=== PATIENT | female | born 1950 | race Caucasian/White ===

== ENCOUNTER 2018-03-04 00:31 | Outpatient (CLI) | payer OTHER, SELFPAY ==
--- NOTE | 2018-03-04 11:34 | DI.MAMMO_ITS ---
SYMPTOM/DIAGNOSIS: SCREENING, Z12.31 MAMMOGRAMS: Mammograms were interpreted according to the usual protocol including computer analysis with CAD system, tomosynthesis and C view imaging. Comparison is made with the prior examinations. No suspicious masses or microcalcifications are seen. There is no definite evidence of malignancy. IMPRESSION: Negative mammogram. Routine screening is recommended. Category 1 , breast density B. MQSA ASSESSMENT OF FINDINGS: Negative. Category 1. Patient will receive a letter notifying them of these results. BI-RADS category B. There are scattered areas of fibroglandular density.
== END 2018-03-04 00:51 ==
PROVIDERS: PCP Family Medicine; Visit Provider Family Medicine
DX: Z12.31 Encounter for screening mammogram for malignant neoplasm of breast (principal)
CPT/HCPCS: 77063; 77067

== ENCOUNTER 2019-02-19 10:58 | Outpatient (REF) | payer OTHER, SELFPAY ==
[2019-02-19 12:39] LABS: Anion Gap 5.7 mmol/L (3-11); BUN 12 mg/dL (7-18); CO2 29.3 mmol/L (21.0-32.0); CREATININE 0.98 mg/dL (0.55-1.02); Calcium 8.8 mg/dL (8.5-10.1); Chloride 108 mmol/L (98-107); Estimated GFR 55.95 (mL/min/1.73m2); Glucose 81 mg/dL (74-106); HCT 40.5 % (36.0-46.0); HGB 13.1 g/dL (12.0-15.5); Mean Corp. HGB Concentration 32.3 g/dL (32.0-36.0); Mean Corpuscular Hemoglobin 31.7 pg (27.0-33.0); Mean Corpuscular Volume 98.1 fL (80-95); Mean Platelet Volume 9.3 fL (8.0-11.0); Platelet Count 300 x1000/uL (130-400); Potassium 4.3 mmol/L (3.5-5.1); RBC 4.13 m/cumm (4.00-5.20); RBC Distribution Width 12.4 % (11.7-14.6); Sodium 143 mmol/L (136-145)
== END 2019-02-19 11:18 ==
LOC: NCHCN 10:58
PROVIDERS: PCP Family Medicine; Visit Provider Specialist/Technologist Athletic Trainer
DX: Z13.1 Encounter for screening for diabetes mellitus (principal); Z13.228 Encounter for screening for other metabolic disorders; R69 Illness, unspecified
CPT/HCPCS: 80048; 85027

== ENCOUNTER 2019-03-24 00:51 | Outpatient (CLI) | payer OTHER, SELFPAY ==
--- NOTE | 2019-03-24 11:16 | DI.MAMMO_ITS ---
EXAM: MG MAMMO SCREENING CLINICAL HISTORY: SCREENING, Z12.31; WELLNESS EXAM, Z00.00 TECHNIQUE: Bilateral full field digital CC and MLO mammographic images were obtained with 3D tomosyn thesis and utilizing computer aided detection (CAD). COMPARISON: Available for comparison. FINDINGS: Masses/Architectural Distortion: None seen. Microcalcifications: No suspicious pleomorphic-type are seen. Skin Thickening/Nipple Retraction: None. IMPRESSION: 1. No significant interval change with no specific features of malignancy noted. 2. Unless there is more urgent need, screening mammography is recommended, as per [employer] guidelines. ACR BI-RAD Category- 1 Negative Breast Density - Category B - Scattered areas of fibroglandular density A negative radiographic report should not delay biopsy if a dominant or clinically suspicious mass is present. Up to ten percent of cancers are not identified on mammography. A negative report may reinforce clinical impression. Adenosis and dense breasts may obscure an underlying neoplasm. False positive reports average 6 to 10%. Patient will receive a letter notifying them of these results.
== END 2019-03-24 01:11 ==
PROVIDERS: PCP Family Medicine; Visit Provider Specialist/Technologist Athletic Trainer
DX: Z12.31 Encounter for screening mammogram for malignant neoplasm of breast (principal)
CPT/HCPCS: 77063; 77067

== ENCOUNTER 2019-05-15 02:21 | Outpatient (CLI) | payer OTHER, SELFPAY ==
--- NOTE | 2019-05-15 | DI.DEXA_ITS ---
EXAM: XR DEXA BONE DENSITY W/WO ANTHONY INDICATION: WELLNESS EXAM Z00.00, OSTEOPENIA M85.80. COMPARISON: 2018 TECHNIQUE: 2D digital imaging was performed. FINDINGS: The lateral view of the spine shows no compression deformities. Evaluation of the left hip shows a total T-score of -1.8 and a Z-score of -0.2. This is consistent w ith osteopenia and an increased fracture risk. This compares with a total T-score of -1.4 from 2018. Evaluation of the lumbar spine shows a total T-score of -2.6 and a Z-score of -0.5. This is consiste nt with osteoporosis and a high fracture risk. This compares with a total T-score of -2.8 from 2018. IMPRESSION: Osteoporosis in the lumbar spine.
== END 2019-05-15 02:41 ==
PROVIDERS: PCP Family Medicine; Visit Provider Specialist/Technologist Athletic Trainer
DX: M85.88 Other specified disorders of bone density and structure, other site (principal); M81.0 Age-related osteoporosis without current pathological fracture
CPT/HCPCS: 77080

== ENCOUNTER 2020-03-29 01:59 | Outpatient (CLI) | payer OTHER, SELFPAY ==
--- NOTE | 2020-03-29 15:08 | DI.MAMMO_ITS ---
EXAM: MG MAMMO SCREENING CLINICAL HISTORY: SCREENING, Z12.31. TECHNIQUE: Bilateral full field digital CC and MLO mammographic images were obtained with 3D tomosyn thesis and utilizing computer aided detection (CAD). COMPARISON: Prior mammograms dating back to 2010, the most recent being March 2019. FINDINGS: There are no spiculated masses nor malignant appearing microcalcification groups. There is no signif icant architectural distortion nor skin thickening-retraction. IMPRESSION: No radiographic evidence of malignancy. BI-RADS Category 1 - Negative Breast Density - Category B - Scattered areas of fibroglandular density Breast density Category C or D implies that the patient has dense breast tissue. Dense breast tissue can make it harder to find cancer on a mammogram. Dense breast tissue is also associated with an incr eased risk of breast cancer. This information about the result of the mammogram report was provided to the patient to raise their awareness. Use this report when you speak with the patient about their risks for breast cancer, which includes their family history. At that time, you may recommend additional screening tests (Ultrasoun d or MRI) as these tests may add significant information. A negative radiographic report should not delay biopsy if a dominant or clinically suspicious mass is present. Up to ten percent of cancers are not identified on mammography. A negative report may reinforce clinical impression. Adenosis and dense breasts may obscure an underlying neoplasm. False positive reports average 6 to 10%. Patient will receive a letter notifying them of these results.
== END 2020-03-29 02:19 ==
PROVIDERS: PCP Family Medicine; Visit Provider Family Medicine
DX: Z12.31 Encounter for screening mammogram for malignant neoplasm of breast (principal)
CPT/HCPCS: 77063; 77067

== ENCOUNTER 2021-02-22 10:03 | Outpatient (REF) | payer MEDICARE, SELFPAY ==
[2021-02-21 16:13] LABS: ALT 17 U/L (14-59); AST 14 U/L (15-37); Alkaline Phosphatase 77 U/L (46-116); BUN 15 mg/dL (7-18); Bilirubin, Total 1.1 mg/dL (0.2-1.0); Calcium 9.1 mg/dL (8.5-10.1); Calculated LDL 158 mg/dL (<100); Chloride 109 mmol/L (98-107); Cholesterol 231 mg/dL (<200); Estimated GFR 54.35 (mL/min/1.73m2); Glucose 82 mg/dL (74-106); HDL Cholesterol 56 mg/dL (40-60); Potassium 4.2 mmol/L (3.5-5.1); Sodium 146 mmol/L (136-145); Triglyceride 85 mg/dL (<150)
== END 2021-02-22 10:04 | disposition home or self-care (01) ==
LOC: NCHCN 10:03
PROVIDERS: PCP Family Medicine; Visit Provider Family Medicine
DX: C44.91 Basal cell carcinoma of skin, unspecified (principal); M81.0 Age-related osteoporosis without current pathological fracture; Z00.00 Encounter for general adult medical examination without abnormal findings
CPT/HCPCS: 80053; 80061

== ENCOUNTER 2021-03-30 00:09 | Outpatient (CLI) | payer MEDICARE, SELFPAY ==
--- NOTE | 2021-03-30 | DI.MAMMO_ITS ---
Exam(s) MAMMO SCREENING EXAM: MAMMO SCREENING CLINICAL HISTORY: SCREENING MAMMO Z12.31. TECHNIQUE: Bilateral full field digital CC and MLO mammographic images were obtained with 3D tomosyn thesis and utilizing computer aided detection (CAD). COMPARISON: Prior mammograms dating back to 2011, the most recent being March 2020. FINDINGS: There are no new spiculated masses nor malignant appearing microcalcification groups. There is no significant architectural distortion nor skin thickening-retraction. IMPRESSION: No radiographic evidence of malignancy. BI-RADS Category 1 - Negative Breast Density - Category B - Scattered areas of fibroglandular density Breast density Category C or D implies that the patient has dense breast tissue. Dense breast tissue can make it harder to find cancer on a mammogram. Dense breast tissue is also associated with an incr eased risk of breast cancer. This information about the result of the mammogram report was provided to the patient to raise their awareness. Use this report when you speak with the patient about their risks for breast cancer, which includes their family history. At that time, you may recommend additional screening tests (Ultrasoun d or MRI) as these tests may add significant information. A negative radiographic report should not delay biopsy if a dominant or clinically suspicious mass is present. Up to ten percent of cancers are not identified on mammography. A negative report may reinforce clinical impression. Adenosis and dense breasts may obscure an underlying neoplasm. False positive reports average 6 to 10%. Patient will receive a letter notifying them of these results.
== END 2021-03-30 00:29 ==
PROVIDERS: PCP Family Medicine; Visit Provider Family Medicine
DX: Z12.31 Encounter for screening mammogram for malignant neoplasm of breast (principal)
CPT/HCPCS: 77063; 77067

== ENCOUNTER 2021-05-20 00:46 | Outpatient (CLI) | payer MEDICARE, SELFPAY ==
--- NOTE | 2021-05-20 | DI.DEXA_ITS ---
Exam(s) XR DEXA BONE DENSITY W/WO ANTHONY EXAM: XR DEXA BONE DENSITY W/WO ANTHONY CLINICAL HISTORY: OSTEOPOROSIS M81.0, WELLNESS EXAM Z00.00 TECHNIQUE: COMPARISON: CR XR DEXA BONE DENSITY W/WO ANTHONY from 05/15/2019 FINDINGS: Lateral Spine Image: Unremarkable. No compression deformities identified. Left hip: Total T-Score: -1.6. This compares to -1.8 on the prior examination. Total Z-Score: 0.1 T- and Z-scores: Findings are consistent with osteopenia. Lumbar Spine: Total T-Score: -2.5. This compares to -2.6 on the prior examination. Total Z-Score: -0.2 T- and Z-scores: Findings of osteoporosis. IMPRESSION: Osteoporosis in the lumbar spine.
== END 2021-05-20 01:06 ==
PROVIDERS: PCP Family Medicine; Visit Provider Family Medicine
DX: M81.0 Age-related osteoporosis without current pathological fracture (principal); Z13.820 Encounter for screening for osteoporosis; M85.88 Other specified disorders of bone density and structure, other site
CPT/HCPCS: 77080

== ENCOUNTER → 2021-08-12 23:47 | Outpatient (CLI) | payer MEDICARE, SELFPAY ==
--- NOTE | 2021-08-12 | DI.CT_ITS ---
Exam(s) CT HEAD WO EXAM: CT HEAD WO CLINICAL HISTORY: TRAUMATIC HEADACHE G44.309, SYNCOPE, HIT HEAD, VOMITING, BRUISING FOREHEAD. TECHNIQUE: Imaging Protocol: Axial computed tomography images with coronal and sagittal reformatted images were created and reviewed COMPARISON: No exams were available for comparison FINDINGS: There are no skull fractures nor fluid in the visualized paranasal sinuses. There is no evidence of intracranial hemorrhage, mass effect, or shift of midline structures. There are no extra-axial fluid collections. The ventricles are not enlarged or shifted and there is no blo od within the ventricular system nor within the basal cisterns. IMPRESSION: No acute intracranial findings on this noninfused CT scan of the brain. RADIATION DOSE DELIVERED: 584.57mGy.cm Total DLP DATA REPOSITORY: All CT scans at this facility are submitted to the National Radiology Data Registry (NRDR) Dose Index Registry (DIR) with the [employer] (ACR). RADIATION OPTIMIZATION: All CT scans at this facility use at least one of these dose optimization te chniques: automated exposure control; mA and/or kV adjustment per patient size (includes targeted exa ms where dose is matched to clinical indication); or iterative reconstruction.
== END ==
PROVIDERS: PCP Family Medicine; Visit Provider Family Medicine
DX: G44.309 Post-traumatic headache, unspecified, not intractable (principal); R55 Syncope and collapse; R11.10 Vomiting, unspecified
CPT/HCPCS: 70450

== ENCOUNTER 2022-03-03 13:07 | Outpatient (REF) | payer MEDICARE, SELFPAY ==
[2022-03-03 15:01] LABS: ALT 18 U/L (14-59); AST 16 U/L (15-37); Alkaline Phosphatase 77 U/L (46-116); Anion Gap 6.7 mmol/L (3-11); BUN 22 mg/dL (7-18); Bilirubin, Total 1.1 mg/dL (0.2-1.0); CO2 30.3 mmol/L (21.0-32.0); Calcium 9.1 mg/dL (8.5-10.1); Calculated LDL 129 mg/dL (<100); Chloride 105 mmol/L (98-107); Cholesterol 204 mg/dL (<200); Estimated GFR 59.12 (mL/min/1.73m2); Glucose 81 mg/dL (74-106); HDL Cholesterol 54 mg/dL (40-60); Potassium 4.1 mmol/L (3.5-5.1); Sodium 142 mmol/L (136-145); Triglyceride 109 mg/dL (<150)
[2022-03-03 15:18] LABS: Vitamin D 25 Total 49.6 ng/mL (30-100)
== END 2022-03-03 13:08 | disposition home or self-care (01) ==
LOC: NCHCN 13:07
PROVIDERS: PCP Family Medicine; Visit Provider Family Medicine
DX: E78.5 Hyperlipidemia, unspecified (principal); Z00.00 Encounter for general adult medical examination without abnormal findings
CPT/HCPCS: 80053; 80061; 82306

== ENCOUNTER 2022-03-31 00:32 | Outpatient (CLI) | payer MEDICARE, SELFPAY ==
--- NOTE | 2022-03-31 | DI.CTLCSR_ITS ---
Exam(s) CT CHEST LUNG CANCER SCREEN EXAM: CT CHEST LUNG CANCER SCREEN CLINICAL HISTORY: SCREENING FOR LUNG CA, FORMER SMOKER, Z87.891 TECHNIQUE: Imaging Protocol: Axial computed tomography images with coronal and sagittal reformatted images were created and reviewed. Low dose screening protocol. COMPARISON: CT CT CHEST SCREENING LUNG CANCER from 10/18/2020 FINDINGS: The exam is somewhat limited by respiratory motion and expiratory changes posteriorly.. Tracheobronchial tree: No bronchiectasis or mucus plugging.. Mediastinum and Maddi: No dominant adenopathy or fluid collection. Pulmonary parenchyma: Mild biapical scarring. No consolidation or dominant measurable mass. No visib le emphysematous changes. Lung Nodules: None. Pleura: No effusion. No pneumothorax. Heart: The heart is not dilated. No coronary artery calcifications are seen. Trace pericardial effusi on. Smaller than prior. Aorta: Thoracic aorta non-dilated.Mild atherosclerotic changes. Upper abdomen: Unremarkable. Bones: Unremarkable for age. Soft Tissues: Unremarkable. IMPRESSION: No suspicious pulmonary nodules. Exam is limited by respiratory motion and expiratory changes. Lung RADS Cat 2 - Benign Appearance / Behavior: Nodules with a very low likelihood of becoming a clin ically active cancer due to size or lack of growth Lung-RADS 1.0 CATEGORIES: Category 0 - Prior chest CT exam(s) being located for comparison. Category 1 - Annual screening in 12 months. No nodules or definitely benign nodules. Category 2 - Annual screening in 12 months. Benign appearance. Nodules with low likelihood of becomin g active cancer. Category 3 - 6-month follow-up. Probably benign. Short-term follow-up suggested. Nodules with low lik elihood of becoming active cancer. Category 4A - 3-month follow-up and CT/PET if >8 mm in size. Suspicious finding. Findings which requi re additional testing. Category 4B - Findings which require additional testing and tissue sampling. Category 4X - Category 3 or 4 nodules with additional features or imaging findings that increases the suspicion of malignancy. Modifier S- Potentially clinically significant findings (non lung cancer) RADIATION DOSE DELIVERED: 72.68mGy.cm Total DLP DATA REPOSITORY: All CT scans at this facility are submitted to the National Radiology Data Registry (NRDR) Dose Index Registry (DIR) with the [employer] (ACR). RADIATION OPTIMIZATION: All CT scans at this facility use at least one of these dose optimization te chniques: automated exposure control; mA and/or kV adjustment per patient size (includes targeted exa ms where dose is matched to clinical indication); or iterative reconstruction.
--- NOTE | 2022-03-31 | DI.MAMMO_ITS ---
Exam(s) MAMMO SCREENING EXAM: MAMMO SCREENING CLINICAL HISTORY: SCREENING,Z12.31 TECHNIQUE: Mammograms were interpreted according to the usual protocol including computer analysis w [email or web address] CAD system, tomosynthesis and C-view imaging. COMPARISON: 2012 through 2020 FINDINGS: The breasts are composed of scattered fibroglandular densities, Breast Density category B. No suspicious masses or suspicious microcalcifications are seen. No skin thickening or abnormal axillary lymph nodes are seen. There has been no significant change from prior exams. IMPRESSION: BI-RADS Category 1, Negative mammogram Yearly screening mammography is recommended. Breast Density - Category B, scattered fibroglandular densities. A negative radiographic report should not delay biopsy if a dominant or clinically suspicious mass is present. Up to ten percent of cancers are not identified on mammography. A negative report may reinforce clinical impression. Adenosis and dense breasts may obscure an underlying neoplasm. False positive reports average 6 to 10%. Patient will receive a letter notifying them of these results.
== END 2022-03-31 00:52 ==
LOC: DI 00:32
PROVIDERS: PCP Family Medicine; Visit Provider Internal Medicine
DX: Z12.31 Encounter for screening mammogram for malignant neoplasm of breast (principal); Z12.2 Encounter for screening for malignant neoplasm of respiratory organs; Z87.891 Personal history of nicotine dependence; J98.4 Other disorders of lung
CPT/HCPCS: 71271; 77063; 77067

== ENCOUNTER 2023-03-06 15:29 | Outpatient (REF) | payer MEDICARE, SELFPAY ==
[2023-03-06 16:12] LABS: ALT 16 U/L (14-59); AST 13 U/L (15-37); Albumin 3.7 g/dL (3.4-5.0); Alkaline Phosphatase 79 U/L (46-116); Anion Gap 6.2 mmol/L (3-11); BUN 18 mg/dL (7-18); Bilirubin, Total 0.9 mg/dL (0.2-1.0); CO2 28.8 mmol/L (21.0-32.0); Calcium 9.1 mg/dL (8.5-10.1); Calculated LDL 137 mg/dL (<100); Chloride 108 mmol/L (98-107); Cholesterol 208 mg/dL (<200); Estimated GFR 58.75 (mL/min/1.73m2); Glucose 85 mg/dL (74-106); HDL Cholesterol 55 mg/dL (40-60); Potassium 4.4 mmol/L (3.5-5.1); Sodium 143 mmol/L (136-145); Total Protein 6.8 g/dL (6.4-8.2); Triglyceride 80 mg/dL (<150)
== END 2023-03-06 15:30 | disposition home or self-care (01) ==
LOC: NCHCN 15:29
PROVIDERS: PCP Family Medicine; Visit Provider Family Medicine
DX: I10 Essential (primary) hypertension (principal); E78.5 Hyperlipidemia, unspecified
CPT/HCPCS: 80053; 80061

== ENCOUNTER → 2023-04-03 00:20 | Outpatient (CLI) | payer MEDICARE, SELFPAY ==
--- NOTE | 2023-04-03 | DI.CTLCSR_ITS ---
Exam(s) CT CHEST LUNG CANCER SCREEN EXAM: CT CHEST LUNG CANCER SCREEN CLINICAL HISTORY: SCREENING FOR LUNG CA,FORMER SMOKER, Z87.891 TECHNIQUE: Imaging Protocol: Axial computed tomography images with coronal and sagittal reformatted images were created and reviewed COMPARISON: CT CT CHEST SCREENING LUNG CANCER from 10/18/[address] CHEST LUNG CANCER SCREEN from 03/31/2022 FINDINGS: Tracheobronchial tree: Patent where visualized. Pulmonary parenchyma: No consolidation or dominant measurable mass. No architectural distortion. Ther e is a calcified granuloma in the lingula. (Series 4, image 340). There is mild scarring in the devyn g apices. The tiny subpleural nodule seen in the right lung apex is unchanged. Lung Nodules: No new pulmonary nodules are seen. Mediastinum and Maddi: No dominant adenopathy or fluid collection. The esophagus is unremarkable. Thyroid gland: Unremarkable. Lymph nodes: Unremarkable. Pleura: No effusion or pneumothorax. Heart: The heart is not dilated. Mild coronary artery calcification is present. There is a small per icardial effusion. Aorta: Thoracic aorta non-dilated.There is atherosclerosis present. Upper abdomen: Unremarkable. Soft Tissues: Unremarkable. Bones: Within normal limits. IMPRESSION: Stable tiny subpleural noncalcified pulmonary nodule in the right upper lobe. No new pulmonary nodul es. Lung RADS Cat 2 - Benign Appearance / Behavior: Nodules with a very low likelihood of becoming a clin ically active cancer due to size or lack of growth Lung-RADS 1.0 CATEGORIES: Category 0 - Prior chest CT exam(s) being located for comparison. Category 1 - Annual screening in 12 months. No nodules or definitely benign nodules. Category 2 - Annual screening in 12 months. Benign appearance. Nodules with low likelihood of becomin g active cancer. Category 3 - 6-month follow-up. Probably benign. Short-term follow-up suggested. Nodules with low lik elihood of becoming active cancer. Category 4A - 3-month follow-up and CT/PET if >8 mm in size. Suspicious finding. Findings which requi re additional testing. Category 4B - Findings which require additional testing and tissue sampling. Suspicious finding. Category 4X - Category 3 or 4 nodules with additional features or imaging findings that increases the suspicion of malignancy. Modifier S- Potentially clinically significant finding. (Non lung cancer) RADIATION DOSE DELIVERED: Total DLP Total DLP DATA REPOSITORY: All CT scans at this facility are submitted to the National Radiology Data Registry (NRDR) Dose Index Registry (DIR) with the [employer] (ACR). RADIATION OPTIMIZATION: All CT scans at this facility use at least one of these dose optimization te chniques: automated exposure control; mA and/or kV adjustment per patient size (includes targeted exa ms where dose is matched to clinical indication); or iterative reconstruction.
--- NOTE | 2023-04-03 | DI.MAMMO_ITS ---
Exam(s) MAMMO SCREENING EXAM: MAMMO SCREENING CLINICAL HISTORY: SCREENING,Z12.31 TECHNIQUE: Bilateral full field digital CC and MLO mammographic images were obtained with 3D tomosyn thesis and utilizing computer aided detection (CAD). COMPARISON: Available for comparison. FINDINGS: Masses/Architectural Distortion: None seen. Microcalcifications: No suspicious pleomorphic-type are seen. Skin Thickening/Nipple Retraction: None. IMPRESSION: 1. No significant interval change with no specific features of malignancy noted. 2. Unless there is more urgent need, screening mammography is recommended, as per [employer] guidelines. BI-RADS Category 1 - Negative Breast Density - Category B - Scattered areas of fibroglandular density Breast density category C or D implies that the patient has dense breast tissue. Dense breast tissue is very common and is not abnormal but dense breast tissue can make it harder to find cancer on a ma mmogram. Also, dense breast tissue may increase their breast cancer risk. This information about the result of the mammogram report was provided to the patient to raise their awareness. Use this report when you speak with the patient about their risks for breast cancer, which includes their family hist ory. At that time, you may recommend for more screening tests (Ultrasound or MRI) as they might be us eful based on their risk. A negative radiographic report should not delay biopsy if a dominant or clinically suspicious mass is present. Up to ten percent of cancers are not identified on mammography. A negative report may reinforce clinical impression. Adenosis and dense breasts may obscure an underlying neoplasm. False positive reports average 6 to 10%. Patient will receive a letter notifying them of these results.
== END ==
PROVIDERS: PCP Family Medicine; Visit Provider Family Medicine
DX: Z87.891 Personal history of nicotine dependence (principal); Z12.31 Encounter for screening mammogram for malignant neoplasm of breast; Z12.2 Encounter for screening for malignant neoplasm of respiratory organs
CPT/HCPCS: 71271; 77063; 77067

== ENCOUNTER → 2023-05-24 00:17 | Outpatient (CLI) | payer MEDICARE, SELFPAY ==
--- NOTE | 2023-05-24 | DI.DEXA_ITS ---
Exam(s) XR DEXA BONE DENSITY W/WO ANTHONY EXAM: XR DEXA BONE DENSITY W/WO ANTHONY CLINICAL HISTORY: Asymptomatic menopausal state, Z78.0 TECHNIQUE: COMPARISON: CR XR DEXA BONE DENSITY W/WO ANTHONY from 05/20/2021 FINDINGS: Lateral Spine Image: Unremarkable. No compression deformities identified. Left hip: Total T-Score: -1.7. This compares to -1.6 on the prior examination. Total Z-Score: 0.1 T- and Z-scores: Findings are consistent with osteopenia. There is no evidence of osteoporosis. Lumbar Spine: Total T-Score: -2.7. This compares to -2.5 on the prior examination. Total Z-Score: -0.4 T- and Z-scores: This is consistent with osteopenia. IMPRESSION: Osteopenia in the lumbar spine.
== END ==
PROVIDERS: PCP Family Medicine; Visit Provider Family Medicine
DX: Z78.0 Asymptomatic menopausal state (principal); Z13.820 Encounter for screening for osteoporosis
CPT/HCPCS: 77080

== ENCOUNTER 2023-10-16 15:33 | Emergency (ER) | payer MEDICARE, SELFPAY ==
[2023-10-16 15:40] VITALS: BP 141/87; PULSE 81; RESP 16; TEMP 36.7; O2SAT 96
--- NOTE | 2023-10-16 17:30 | RT.EKG_ITS ---
APPROVED REPORT Exam: Resting ECG Reason for Exam: gi bleed Patient Location: E HR:66 bpm ECG Measurements Heart Rate 66 AXIS VA 146 P 53 QRSd 83 QRS 43 QT 407 T 45 QTc 427 Conclusion Sinus rhythm at a rate of 66 without acute ischemic change with normal intervals.
[2023-10-16 17:36] LABS: Abs Immature Grans 0.01 10^3/uL (0.0-0.06); Absolute Basophil Count 0.03 10^3/uL (0.0-0.2); Absolute Eosinophil Count 0.08 10^3/uL (0.0-0.7); Absolute Monocyte Count 0.65 10^3/uL (0.1-0.8); Absolute Neutrophil Count 5.99 10^3/uL (1.2-6.7); Basophils % 0.4 %; HCT 40.6 % (36.0-46.0); HGB 13.4 g/dL (11.2-15.7); Immature Grans % 0.1 %; Lymphocytes % 19.1 %; MCH 31.7 pg (27.0-33.0); MCV 96 fL (80-95); MPV 8.9 fL (8.0-11.0); Monocytes % 7.8 %; Neutrophils % 71.6 %; Platelet Count 223 10^3/uL (130-400); RBC 4.23 10^6/uL (3.93-5.22); RDW 12.5 % (11.7-14.6); RDW-SD 43.7 fL; WBC 8.36 10^3/uL (4.4-10.8)
--- NOTE | 2023-10-16 17:37 | ED.GENADUL_ITS ---
Discharge Plan Disposition Patient Disposition: Home Condition: Stable Discharge Details Clinical Impression: Colitis, Internal hemorrhoid Primary Care Provider: Lashon Solorzano ED Provider: Megan Burleson Home Meds and New Rx's Prescriptions: New amoxicillin-pot clavulanate 875-125 mg tablet 1 tab PO BID Qty: 14 0RF Continued calcium carbonate-vit D3-min 600 mg calcium- 400 unit tablet 0.5 tab PO DAILY cholecalciferol (vitamin D3) 25 mcg (1,000 unit) capsule 25 mcg PO DAILY Discharge Instructions Instructions: Colitis Additional Instructions: Take the antibiotic as prescribed, I am concerned you may have diverticulitis with your pain Use the hemorrhoidal cream [id number], hemorrhoidal suppositories and use a daily Follow-up with surgery as you will need a colonoscopy and please return should you develop persistent bleeding, fever, worsening pain, or should any new concerns arise Referrals: Елена Ring DO [OSTEOPATHIC DOCTOR] - HPI General Date/Time Provider Initiated Documentation: 10/16/23 17:12 . HPI Narrative: This 73-year-old female presents with right lower quadrant abdominal pain. States it is worse with walking. States today when she had a bowel movement there is a little bit of blood after straining. States she does have a history of hemorrhoids denies any history of coagulopathy or history of GI bleed. Has not had a colonoscopy for many years per patient. Denies any chest pain or shortness of breath. Denies any dizziness or weakness. Denies any urinary symptoms. Denies any lightheadedness. Related Data Home Medications ?Medication ?Instructions ?Recorded ?Confirmed calcium carb-vit D3-minerals 600 0.5 tab PO DAILY 03/21/21 10/16/23 mg calcium-400 unit tablet cholecalciferol (vitamin D3) 25 25 mcg PO DAILY 03/21/21 10/16/23 mcg (1,000 unit) capsule amoxicillin 875 mg-potassium 1 tab PO BID #14 tabs 10/16/23 clavulanate 125 mg tablet Previous Rx's ?Medication ?Instructions ?Recorded amoxicillin 875 mg-potassium 1 tab PO BID #14 tabs 10/16/23 clavulanate 125 mg tablet Allergies Allergy/AdvReac Type Severity Reaction Status Date / Time No Known Allergies Allergy Unverified 05/30/21 11:25 General Stated Complaint: Abd Prob JEWEL: 3 Exam Narrative Exam Narrative: Alert and oriented, no acute distress, no pallor, lungs clear to auscultation, cardiac rate rhythm regular, right lower quadrant tenderness, anoscopy exam with internal hemorrhoids with scant blood and thrombosis Course Vital Signs Vital signs: Vital Signs Temperature 36.7 C 10/16/23 15:40 Pulse 81 10/16/23 15:40 Respiratory Rate 16 10/16/23 15:40 Blood Pressure 141/87 H 10/16/23 15:40 Pulse Oximetry 96 10/16/23 15:40 Temperature 36.7 C 10/16/23 15:40 Temperature Source Tympanic 10/16/23 15:40 Pulse 81 10/16/23 15:40 Respiratory Rate 16 10/16/23 15:40 Blood Pressure 141/87 H 10/16/23 15:40 Blood Pressure Position Sitting 10/16/23 15:40 Pulse Oximetry 96 10/16/23 15:40 Oxygen Delivery Method Room Air 10/16/23 15:40 Oxygen Flow Rate 0 10/16/23 15:40 Pain Level 3 10/16/23 15:40 Medical Decision Making 73-year-old female in no acute distress, right lower quadrant pain which started several days ago. Some scant blood in stool today, predominantly when patient wiped. Denies any weakness or dizziness. Has had abdominal pain for the past couple of days and has had it intermittently which patient states is partially related to food in the past. Has not had a colonoscopy for approximately 25 years per patient. Denies any nausea or vomiting. Denies any fever or chills. CT abdomen and pelvis shows possible colitis however patient's not having diarrhea so I suspect this is likely diverticulitis and I will treat with Augmentin. Patient has no rebound or guarding and really is in no acute distress and hemodynamically stable with normal CBC, I suspect blood is coming from internal hemorrhoids which are thrombosed. Patient will be referred for colonoscopy. recheck in 24-48 hours encouraged. I see no clear indication to admit patient at this time, she will return immediately should she have worsening or persistent bleeding and pain Quality:SDOH Health Related Social Needs: No Data to Display PFSH All Active Problems (Updated 10/16/23 @ 19:32 by LISSA Leos) Internal hemorrhoid (Acute) Colitis (Acute) Internal nasal lesion (Acute) Medical History Basal cell carcinoma (BCC) Do not resuscitate Endometrial polyp (10/22/14) successfully removed via hysteroscopy/D+C. aoc Episodic tobacco abuse stopped daily use 01/2013. has smoked 2 packs of cigarettes in past 5mo. Headache Hyperlipidemia Lesion of nasal cavity Osteopenia Osteoporosis Surgical History Colonoscopy - IV Sedation 58yo. Dilation and curettage (10/22/14) with hysteroscopy for increased vaginal discharge and thickened ES. Finding: benign endometrial polyp. Family History Mother Lung cancer Maternal Uncle Diabetes Social History Smoking/Tobacco Use Status: Former Tobacco Use Smoking risk assessment performed?: Yes Alcohol Intake: never Drug use: Never Housing: apartment Do you feel safe at home: Yes Do you feel safe in your relationship?: Yes
[2023-10-16 17:54] LABS: ALT 21 U/L (14-59); AST 14 U/L (15-37); Albumin 4.2 g/dL (3.4-5.0); Alkaline Phosphatase 78 U/L (46-116); BUN 12 mg/dL (7-18); Bilirubin, Total 1.03 mg/dL (0.2-1.0); CREATININE 0.9 mg/dL (0.55-1.02); Calcium 9.1 mg/dL (8.5-10.1); Chloride 106 mmol/L (98-107); Estimated GFR 66.67 (mL/min/1.73m2); Glucose 92 mg/dL (74-106); Lipase 31 U/L (16-77); Potassium 4.1 mmol/L (3.5-5.1); Sodium 142 mmol/L (136-145); Total Protein 7.7 g/dL (6.4-8.2)
[2023-10-16] MEDS: Omnipaque 350 MG/ML 100 ML BTL IJ (18:17)
[2023-10-16] MEDS: Normal Saline - Diluent 50 ML VIAL IJ (18:21)
--- NOTE | 2023-10-16 18:26 | DI.CT_ITS ---
Exam(s) CT ABDOMEN PELVIS W EXAM: CT ABDOMEN PELVIS W CLINICAL HISTORY: RLQ pain. TECHNIQUE: Imaging Protocol: Axial computed tomography images with coronal and sagittal reformatted images were created and reviewed CONTRAST MATERIAL: Intravenous: Omnipaque 350 Contrast volume:100 ml Oral: no COMPARISON: CT CT CHEST SCREENING LUNG CANCER from 10/18/2020 FINDINGS: ABDOMEN and PELVIS: Lung Bases: No acute findings. Liver: Normal density. No suspicious mass. Gallbladder and biliary tract: No radiodense calculus. No biliary dilation. Pancreas: Normal density. No abnormal calcifications or inflammatory process. No evidence of mass. Spleen: Normal. Kidneys: Normal size, contour and axis. No radiodense stones. No obstructive uropathy. No suspicious masses seen. Adrenal glands: No masses seen. Vasculature: Abdominal aorta non-dilated. Atherosclerotic changes. Soft tissues: A fat containing left inguinal hernia. Bladder: No gross wall thickening. No calculi.No focal mass. Bowel: Marked wall thickening of the descending through mid sigmoid colon. Findings consistent with colitis. Some stranding in the surrounding fat. Diverticulosis also present. No obstruction. Norma endix normal. Peritoneal cavity: No ascites. No focal collection. No mesenteric inflammatory response. Bones: Unremarkable for age. Reproductive organs: Unremarkable. Lymph nodes: No pathologically enlarged lymph nodes. IMPRESSION:: Marked diffuse wall thickening and surrounding inflammation involving the descending th rough proximal sigmoid colon, consistent with colitis. RADIATION DOSE DELIVERED: Total DLP DATA REPOSITORY: All CT scans at this facility are submitted to the National Radiology Data Registry (NRDR) Dose Index Registry (DIR) with the [employer] ([employer]). RADIATION OPTIMIZATION: All CT scans at this facility use at least one of these dose optimization te chniques: automated exposure control; mA and/or kV adjustment per patient size (includes targeted exa ms where dose is matched to clinical indication); or iterative reconstruction.
[2023-10-16 18:37] VITALS: BP 166/95; PULSE 74; RESP 16; O2SAT 98
[2023-10-16 18:41] LABS: Bilirubin Negative (Negative); Blood Small (Negative); Clarity Clear (Clear); Glucose Negative (Negative); Ketones Negative (Negative); Leukocyte Esterase Negative (Negative); Nitrite Negative (Negative); Specific Gravity 1.015 (1.005-1.025); Urobilinogen 0.2 mg/dL (Up to 0.2); pH 6.5 (5-8)
[2023-10-16 19:01] LABS: Bacteria Negative HPF (Negative); C & S Indicated? No; Casts Negative LPF (Negative); Crystals Negative HPF (Negative); Epithelial Cells Rare HPF (Negative); Mucus Negative (Negative); Other Cells Rare Transitional (Negative); RBC 0-2 HPF (0-2); WBC 0-2 HPF (0-5)
[2023-10-16] MEDS: Amox. 875/Clav. 125, 2 TABS/BTL 1 TAB PO (19:47)
[2023-10-16 20:04] VITALS: BP 158/69; PULSE 88; RESP 16; TEMP 36.9; O2SAT 98
--- NOTE | 2023-10-17 09:08 | NUR.NOTE ---
Nursing Note:Pt came to the ER and requested that the prescription she received yesterday get sent to [facility] instead of where they were sent to. I confirmed that she wanted them to go to [facility] in [place]. I called and gave a verbal order to Tuan (the pharmacist). Patient aware.
== END 2023-10-16 20:04 | disposition home or self-care (01) ==
PROVIDERS: Emergency Provider Physician Assistant; PCP Family Medicine
DX: K52.9 Noninfective gastroenteritis and colitis, unspecified (principal); K64.8 Other hemorrhoids
CPT/HCPCS: 36415; 80053; 83690; 86850; 86900; 86901; 93005; 99285; 74177; 81003; 81015; 85025; 93010; 99283; J3490

== ENCOUNTER 2024-03-18 09:28 | Outpatient (REF) | payer MEDICARE, SELFPAY ==
[2024-03-18 16:40] LABS: ALT 15 U/L (14-59); AST 16 U/L (15-37); Albumin 3.7 g/dL (3.4-5.0); Alkaline Phosphatase 83 U/L (46-116); Anion Gap 4.5 mmol/L (3-11); BUN 17 mg/dL (7-18); Bilirubin, Total 0.82 mg/dL (0.2-1.0); CO2 30.5 mmol/L (21.0-32.0); CREATININE 0.9 mg/dL (0.55-1.02); Calcium 8.9 mg/dL (8.5-10.1); Calculated LDL 148 mg/dL (<100); Chloride 108 mmol/L (98-107); Cholesterol 234 mg/dL (<200); Estimated GFR 66.26 (mL/min/1.73m2); Glucose 88 mg/dL (74-106); HDL Cholesterol 59 mg/dL (40-60); Potassium 4.7 mmol/L (3.5-5.1); Sodium 143 mmol/L (136-145); Total Protein 6.6 g/dL (6.4-8.2); Triglyceride 139 mg/dL (<150); Vitamin D 25 Total 55.7 ng/mL (30-100)
== END 2024-03-18 09:29 | disposition home or self-care (01) ==
LOC: NCHCN 09:28
PROVIDERS: PCP Family Medicine; Visit Provider Family Medicine
DX: E78.5 Hyperlipidemia, unspecified (principal); M81.0 Age-related osteoporosis without current pathological fracture
CPT/HCPCS: 80053; 80061; 82306

== ENCOUNTER 2024-04-07 03:06 | Outpatient (CLI) | payer MEDICARE, SELFPAY ==
--- NOTE | 2024-04-07 | DI.CTLCSR_ITS ---
Exam(s) CT CHEST LUNG CANCER SCREEN EXAM: CT CHEST LUNG CANCER SCREEN CLINICAL HISTORY: EX SMOKER, Z87.891, SCREENING FOR LUNG CANCER TECHNIQUE: Imaging Protocol: Axial computed tomography images with coronal and sagittal reformatted images were created and reviewed. Lung Computer Aided Detection (CAD) was utilized. COMPARISON: CT CT CHEST LUNG CANCER SCREEN from 03/31/[address] CHEST LUNG CANCER SCREEN from 04/03/2023 FINDINGS: Tracheobronchial tree: Patent where visualized. No bronchiectasis. Pulmonary parenchyma: No consolidation or dominant measurable mass. No architectural distortion. Lung Nodules: Stable subpleural nodule in the right upper lobe. Mediastinum and Maddi: No dominant adenopathy or fluid collection. The esophagus is unremarkable. Thyroid gland: Unremarkable. Lymph nodes: Unremarkable. Pleura: No effusion or pneumothorax. Heart: The heart is not dilated. No coronary artery calcifications are seen. There is a tiny pericar dial effusion. Aorta: Thoracic aorta non-dilated.Atherosclerotic calcification is present. Upper abdomen: Unremarkable. Soft Tissues: Unremarkable. Bones: Within normal limits. IMPRESSION: No new pulmonary nodules. Lung RADS Cat 2 - Benign Appearance / Behavior: Nodules with a very low likelihood of becoming a clin ically active cancer due to size or lack of growth Lung-RADS 1.0 CATEGORIES: Category 0 - Prior chest CT exam(s) being located for comparison. Category 1 - Annual screening in 12 months. No nodules or definitely benign nodules. Category 2 - Annual screening in 12 months. Benign appearance. Nodules with low likelihood of becomin g active cancer. Category 3 - 6-month follow-up. Probably benign. Short-term follow-up suggested. Nodules with low lik elihood of becoming active cancer. Category 4A - 3-month follow-up and CT/PET if >8 mm in size. Suspicious finding. Findings which requi re additional testing. Category 4B - Findings which require additional testing and tissue sampling. Suspicious finding. Category 4X - Category 3 or 4 nodules with additional features or imaging findings that increases the suspicion of malignancy. Modifier S- Potentially clinically significant finding. (Non lung cancer) RADIATION DOSE DELIVERED: 20.03mGy.cm Total DLP 20.03mGy.cmTotal DLP DATA REPOSITORY: All CT scans at this facility are submitted to the National Radiology Data Registry (NRDR) Dose Index Registry (DIR) with the [employer] ([employer]). RADIATION OPTIMIZATION: All CT scans at this facility use at least one of these dose optimization te chniques: automated exposure control; mA and/or kV adjustment per patient size (includes targeted exa ms where dose is matched to clinical indication); or iterative reconstruction.
--- NOTE | 2024-04-07 11:30 | DI.MAMMO_ITS ---
Exam(s) MAMMO SCREENING EXAM: MAMMO SCREENING CLINICAL HISTORY: SCREENING, Z12.31 TECHNIQUE: Bilateral full field digital CC and MLO mammographic images were obtained with 3D tomosyn thesis and utilizing computer aided detection (CAD). COMPARISON: Available for comparison. FINDINGS: Masses/Architectural Distortion: None seen. Microcalcifications: No suspicious pleomorphic-type are seen. Skin Thickening/Nipple Retraction: None. IMPRESSION: 1. No significant interval change with no specific features of malignancy noted. 2. Unless there is more urgent need, screening mammography is recommended, as per [employer] guidelines. BI-RADS Category 1 - Negative Breast Density - Category B - Scattered areas of fibroglandular density Breast density category C or D implies that the patient has dense breast tissue. Dense breast tissue is very common and is not abnormal but dense breast tissue can make it harder to find cancer on a ma mmogram. Also, dense breast tissue may increase their breast cancer risk. This information about the result of the mammogram report was provided to the patient to raise their awareness. Use this report when you speak with the patient about their risks for breast cancer, which includes their family hist ory. At that time, you may recommend for more screening tests (Ultrasound or MRI) as they might be us eful based on their risk. A negative radiographic report should not delay biopsy if a dominant or clinically suspicious mass is present. Up to ten percent of cancers are not identified on mammography. A negative report may reinforce clinical impression. Adenosis and dense breasts may obscure an underlying neoplasm. False positive reports average 6 to 10%. Patient will receive a letter notifying them of these results.
== END 2024-04-07 03:26 ==
PROVIDERS: PCP Family Medicine; Visit Provider Family Medicine
DX: Z87.891 Personal history of nicotine dependence (principal); Z12.2 Encounter for screening for malignant neoplasm of respiratory organs; Z12.31 Encounter for screening mammogram for malignant neoplasm of breast
CPT/HCPCS: 71271; 77063; 77067

== ENCOUNTER 2025-03-18 10:04 | Outpatient (REF) | payer MEDICARE, SELFPAY ==
[2025-03-18 15:02] LABS: HCT 38.0 % (36.0-46.0); HGB 12.3 g/dL (11.2-15.7); MCH 30.7 pg (27.0-33.0); MCHC 32.4 % (32.0-36.0); MCV 95 fL (80-95); MPV 10.1 fL (8.0-11.0); Platelet Count 236 10^3/uL (130-400); RBC 4.01 10^6/uL (3.93-5.22); RDW 12.1 % (11.7-14.6); RDW-SD 42.2 fL; WBC 3.75 10^3/uL (4.4-10.8)
[2025-03-18 15:30] LABS: Vitamin D 25 Total 53 ng/mL (30-100)
[2025-03-18 15:37] LABS: ALT 10 U/L (10-49); AST 16 U/L (<34); Albumin 4.0 g/dL (3.2-5.0); Alkaline Phosphatase 80 U/L (46-116); Anion Gap 8.4 mmol/L (3-11); BUN 13 mg/dL (9-23); Bilirubin, Total 0.8 mg/dL (0.2-1.2); CO2 26.6 mmol/L (20.0-31.0); Calcium 9.1 mg/dL (8.3-10.6); Chloride 111 mmol/L (98-107); Cholesterol 197 mg/dL (<200); Glucose 87 mg/dL (74-106); HDL Cholesterol 51 mg/dL (>or=50); Potassium 4.3 mmol/L (3.5-5.1); Sodium 146 mmol/L (136-145); Total Protein 6.6 g/dL (5.7-8.2)
== END 2025-03-18 10:05 | disposition home or self-care (01) ==
LOC: NCHCN 10:04
PROVIDERS: PCP Family Medicine; Visit Provider Family Medicine
DX: Z00.00 Encounter for general adult medical examination without abnormal findings (principal); M81.0 Age-related osteoporosis without current pathological fracture; E78.5 Hyperlipidemia, unspecified
CPT/HCPCS: 80053; 80061; 82306; 85027